=== PATIENT | male | born 1975 | race American Indian/Alaskan Native ===

== ENCOUNTER 2022-05-23 05:40 | Emergency (ER) | payer SELFPAY | END 2022-05-23 06:35 | disposition left against medical advice (07) | LOC: DL.ED 05:40 | DX: S00.81XA Abrasion of other part of head, initial encounter (principal); S80.212A Abrasion, left knee, initial encounter; S80.211A Abrasion, right knee, initial encounter; Y04.0XXA Assault by unarmed brawl or fight, initial encounter | CPT/HCPCS: 70450; 70486; 72125; 99282; 99284 ==